=== PATIENT | male | born 1970 | race Hispanic/Latino ===

== ENCOUNTER 2018-11-04 13:34 | Observation (INO) | payer SELFPAY ==
[2018-11-04 14:01] LABS: #Basophils 0.1 thou/uL (0.0-0.2); #Eosinphils 0.1 thou/uL (0.0-0.7); #Lymphocytes 1.7 thou/uL (1.20-3.40); %Basophils 0.9 % (0.0-1.0); %Eosinophils 1.1 % (0.0-10.0); %Lymphocytes 18.8 % (21.0-51.0); %Neutrophils 68.3 % (42.0-75.0); Hemoglobin 15.9 g/dL (14.0-18.0); Mean Corpuscular HGB CONC 33.8 g/dL (32.0-36.0); Mean Corpuscular Hemoglobin 31.2 pg (27.0-31.0); Mean Corpuscular Volume 92.1 fL (78.0-98.0); Mean Platelet Volume 6.7 fL (7.4-10.4); Platelet Count 206 thou/uL (130-400); RBC Distribution Width 13.1 % (11.5-14.5); Red Blood Cell (RBC) Count 5.09 mill/uL (4.70-6.10); White Blood Cell (WBC) Count 8.7 thou/uL (4.8-10.8)
[2018-11-04 14:22] LABS: ALT (SGPT) 81 U/L (8-55); AST (SGOT) 71 U/L (5-34); Albumin 4.5 g/dL (3.5-5.0); Alkaline Phosphatase 93 U/L (40-150); Anion Gap 13 mmol/L (10-20); BUN (Urea Nitrogen) 4 mg/dL (8.9-20.6); Bilirubin, Total 1.2 mg/dL (0.2-1.2); Calc. Creatinine Clearance 0 mL/min (70-130); Calcium 9.2 mg/dL (7.8-10.44); Carbon Dioxide 24 mmol/L (22-29); Chloride 91 mmol/L (98-107); Estimated GFR-MDRD Greater than 90; Globulin 3.1 g/dL (2.4-3.5); Glucose 109 mg/dL (70-105); Potassium 3.8 mmol/L (3.5-5.1); Protein, Total 7.6 g/dL (6.0-8.3); Sodium 124 mmol/L (136-145)
[2018-11-04 16:08] LABS: Bilirubin Negative (Negative); Blood, Urine Negative (Negative); Clarity CLEAR (Clear); Glucose, Urine (Dipstick) Negative (Negative); Leukocyte Negative (Negative); Nitrite Negative (Negative); Protein, Urine (Dipstick) Negative (Neg-Trace); Urobilinogen 0.2 mg/dL (0.2-1.0)
[2018-11-04 16:10] LABS: Specific Gravity, Urine 1.002 (1.002-1.036)
[2018-11-04] MEDS ORDERED: Acetaminophen 325 MG TAB PO PRN (16:59)
[2018-11-04] MEDS ORDERED: Senokot S 8.6-50 MG TAB PO PRN (16:59)
[2018-11-04] MEDS ORDERED: Sodium Chloride 0.9% 1,000 ML IV SCH (17:00)
[2018-11-04] MEDS ORDERED: Dextrose 5% in Water 1,000 ML IV PRN (17:06)
[2018-11-04] MEDS ORDERED: Dextrose 50% Abboject 50 ML SYRINGE SLOW IVP PRN (17:06)
[2018-11-04] MEDS ORDERED: HumaLOG 300 UNITS/3 ML VIAL SC PRN (17:06)
[2018-11-04] MEDS ORDERED: Lorazepam 1 MG TAB PO PRN (17:07)
[2018-11-04 17:39] VITALS: BMI 30.2
[2018-11-04] MEDS ORDERED: Ondansetron PF 4 MG/2 ML Vial IVP PRN (17:55)
[2018-11-04] MEDS ORDERED: Ondansetron ODT 4 MG TAB SL PRN (17:55)
[2018-11-04] MEDS ORDERED: Atorvastatin Calcium 20 MG TAB PO SCH (21:00)
[2018-11-04] MEDS: Famotidine 20 MG TAB PO SCH (21:01)
[2018-11-04 22:39] LABS: Anion Gap 12 mmol/L (10-20); BUN (Urea Nitrogen) 5 mg/dL (8.9-20.6); Calc. Creatinine Clearance 185 mL/min (70-130); Calcium 9.4 mg/dL (7.8-10.44); Carbon Dioxide 24 mmol/L (22-29); Chloride 96 mmol/L (98-107); Estimated GFR-MDRD Greater than 90; Glucose 120 mg/dL (70-105); Potassium 3.9 mmol/L (3.5-5.1); Sodium 128 mmol/L (136-145)
--- NOTE | 2018-11-05 03:31 | HP ---
PRIMARY CARE PROVIDER: Dr. Garcia. CHIEF COMPLAINT: Low sodium. HISTORY OF PRESENT ILLNESS: Mr. Mcduffie is a 47-year-old male who reported to the emergency room today after being told that his sodium was low. The patient reports that he went to his PCP, they [place] [facility] and then called him today to tell him that his sodium was low and asked him to come to the emergency room for further management. The patient reports last day he started feeling weak, had an episode of diarrhea, was seen for blood work yesterday and notified that his sodium was 125 and then referred here. He denies any current chest pain or shortness of breath. He does report some weakness and fatigue. During his evaluation in the ER, the patient was noted to have sodium of 124, potassium 3.8, chloride 91, gap is 13, creatinine is 0.67, glucose is 109. Pertinent to his medical history is daily alcohol intake. Reports that he drinks 5 to 6 beers per day and is also on HCTZ for blood pressure. The patient will be admitted to the observation unit for further management. PAST MEDICAL HISTORY: Diabetes type 2, history of hyperlipidemia, high cholesterol, hypertension. PAST SURGICAL HISTORY: Hernia repair. PSYCHIATRIC HISTORY: None. SOCIAL HISTORY: The patient drinks every day more than 10 drinks per day. Denies any drug use. Denies any smoking history. REVIEW OF SYSTEMS: The patient does report some weakness, some fatigue, has had some nausea in the past several days, has an episode of diarrhea. Denied any current chest pain, shortness of breath, abdominal pain. All other systems reviewed and negative unless mentioned in the HPI. PHYSICAL EXAMINATION: VITAL SIGNS: Temperature is 98.3, pulse is 86, respirations 12, pO2 sats 96% on room air, blood pressure 133/78. CONSTITUTIONAL: The patient is nontoxic appearing. He is alert and oriented to person, place and time. HEENT: Head is atraumatic and normocephalic. Eyes; eyelids are normal to inspection. Extraocular muscles are intact. ENT: Mouth exam is normal. Mucous membranes are moist. NECK: Normal range of motion. Trachea is midline. RESPIRATORY: Chest movement is symmetrical. Breath sounds are clear. CARDIOVASCULAR: The patient has a regular heart rate and rhythm. Does have a murmur 3/6. ABDOMEN: Nontender. Bowel sounds are heard. BACK: Normal range of motion. No tenderness. EXTREMITIES: Upper extremity, normal inspection, normal strength, normal motor strength. Sensation intact. Radial pulses are normal. Lower extremity, normal range of motion. Motor strength is normal. Sensation intact. Pedal pulses normal. No edema is noted. NEURO: The patient is alert and oriented to person, place, and time. Speech is normal. SKIN: Warm and dry. Normal in color. IMAGING: EKG in the emergency room shows normal sinus rhythm, beats per minute 70. ASSESSMENT AND PLAN: 1. Hyponatremia, most likely related to beer potomania and also use of HCTZ for blood pressure. HCTZ has been stopped. IV hydration was given in the ER. We will order normal saline 125 mL per hour x1 L. We will p.o. fluid restrict. We will recheck sodium at 2200 hours to ensure that we are gently increasing sodium. 2. Diabetes. Before meals and bedtime glucose Accu-Cheks will be ordered. Sliding scale, initially we will start metformin prior to discharge. 3. Dyslipidemia. We will restart home medications. 4. Gastrointestinal prophylaxis. The patient takes Protonix. We will continue this. Deep venous thrombosis prophylaxis will be started. Case discussed with Dr. Galeana who agrees with plan. Hospital course will be dependent on clinical findings. Job ID: [id number]
[2018-11-05 05:43] LABS: Band 2 % (5-11); Eosinophils 1 % (0-10); Hemoglobin 15.5 g/dL (14.0-18.0); Lymphocytes 13 % (21-51); MDiff Complete? YES; Mean Corpuscular HGB CONC 32.9 g/dL (32.0-36.0); Mean Corpuscular Hemoglobin 30.9 pg (27.0-31.0); Mean Corpuscular Volume 93.9 fL (78.0-98.0); Mean Platelet Volume 7.1 fL (7.4-10.4); Monocytes 13 % (0-10); Neutrophil 71 % (42-75); Platelet Count 201 thou/uL (130-400); Platelet Morphology Comment Appears Adequate; RBC Distribution Width 13.2 % (11.5-14.5); Red Blood Cell (RBC) Count 5.02 mill/uL (4.70-6.10); White Blood Cell (WBC) Count 6.9 thou/uL (4.8-10.8)
[2018-11-05 05:57] LABS: Anion Gap 15 mmol/L (10-20); BUN (Urea Nitrogen) 5 mg/dL (8.9-20.6); Calc. Creatinine Clearance 179 mL/min (70-130); Calcium 9.5 mg/dL (7.8-10.44); Carbon Dioxide 25 mmol/L (22-29); Chloride 95 mmol/L (98-107); Estimated GFR-MDRD Greater than 90; Glucose 76 mg/dL (70-105); Potassium 4.1 mmol/L (3.5-5.1); Sodium 131 mmol/L (136-145)
[2018-11-05] MEDS: Famotidine 20 MG TAB PO SCH (08:21)
[2018-11-05] MEDS ORDERED: Non-Formulary Item 1 EACH (Lisinopril [Lisinopril] 40 MG) PO SCH (09:00)
[2018-11-05] MEDS ORDERED: Multivit, Therapeutic 1 TAB PO SCH (09:00)
[2018-11-05] MEDS ORDERED: Lisinopril 20 MG TAB PO SCH (09:00)
[2018-11-05] MEDS ORDERED: [UNRECOGNIZED DRUG - REMARK] PO SCH (09:00)
[2018-11-05 11:53] VITALS: BP 140/92; TEMP 97.9
--- NOTE | 2018-11-05 19:14 | DIS ---
DATE OF ADMISSION: 11/04/2018 DATE OF DISCHARGE: 11/05/2018 REASON FOR ADMISSION: Hyponatremia. FINAL DIAGNOSES: 1. Hyponatremia secondary to likely combination of beer potomania and hydrochlorothiazide use, much improved since admission, was 124, and now 131. 2. Alcohol abuse, with a 6 to 10 beer habit per day. 3. Type 2 diabetes mellitus. 4. Hyperlipidemia. 5. Hypertension. 6. Moderate aortic stenosis along with mildly elevated liver enzymes secondary to alcohol abuse. BRIEF HOSPITAL COURSE: The patient is a pleasant 47-year-old male with past medical history significant for diabetes, hypertension, hyperlipidemia, and history of alcohol abuse, who presented to the hospital at the behest of his primary care physician, Dr. Garcia, after routine blood work in the office revealed a sodium level of 125. He was told to come to the ER for further workup and treatment. The patient was admitted for his hyponatremia. Upon interview, the patient states that he did have a prior 18 [id number] alcohol usage, and now drinks maybe 6 to 10. The patient did remain completely asymptomatic from his hyponatremia. He denied any chest pain, shortness of breath, muscle weakness, or fatigue. He denied any abdominal symptoms. The patient was taken off of his hydrochlorothiazide, given one bag of normal saline, and his sodium did improve to 131 throughout his stay. The patient continues to deny any complaints. Overnight, he did feel mildly tremulous and this was relieved by Ativan. He only had one dose, and feels much improved today. He has no tremors or signs of DT. He is alert and oriented and has no complaints. He does also state that he has had a murmur that was diagnosed when he was 16-year-old. The patient did have an echocardiogram performed, which revealed moderate aortic stenosis and normal left ventricular systolic function. CONDITION AT DISCHARGE: Stable. DISCHARGE DISPOSITION: Home. DISCHARGE INSTRUCTIONS: The patient has been given counseling on alcohol cessation. He is to continue aggressive risk factor modification including control of his diabetes, hypertension, and hyperlipidemia. He also was given instruction to follow up with his PCP in the next week. He will also need to follow up with Cardiology given his diagnosed aortic stenosis. It is only moderate at this time, but may end up progressing. DISCHARGE MEDICATIONS: 1. Iron and folic acid supplement one cap daily. 2. Lisinopril 40 mg daily. 3. Metformin 850 mg tablet daily. 4. Pantoprazole 40 mg tablet daily. 5. Simvastatin 40 mg tablet daily. 6. Xanax 0.25 mg tablet one tablet p.o. q.8 hours p.r.n. for anxiety and agitation, dispense 5 with no refills. The care of this patient has been discussed with Dr. Galeana, who agrees with discharge as above. Job ID: [id number]
== END 2018-11-05 14:30 | disposition home or self-care (01) ==
LOC: ERS 13:34 → 2SW 14:53
PROVIDERS: ADMIT Internal Medicine; ATTEND Internal Medicine
DX: E87.1 Hypo-osmolality and hyponatremia (principal); F10.10 Alcohol abuse, uncomplicated; R79.89 Other specified abnormal findings of blood chemistry; E11.9 Type 2 diabetes mellitus without complications; E78.5 Hyperlipidemia, unspecified; E78.00 Pure hypercholesterolemia, unspecified; I10 Essential (primary) hypertension; I35.0 Nonrheumatic aortic (valve) stenosis; Z79.84 Long term (current) use of oral hypoglycemic drugs; Z79.899 Other long term (current) drug therapy
CPT/HCPCS: 36415; 36416; 80048; 80053; 81003; 85007; 85025; 85027; 90471; 90732; 93005; 93306; 96360; G0009; G0378

== ENCOUNTER 2020-12-23 10:46 | Outpatient (CLI) | payer OTHER ==
[2020-12-23 13:15] LABS: Anion Gap 16 mmol/L (10-20); BUN (Urea Nitrogen) 8 mg/dL (8.4-25.7); Calc. Creatinine Clearance 0 mL/min (70-130); Calcium 9.1 mg/dL (7.8-10.44); Carbon Dioxide 23 mmol/L (22-29); Chloride 94 mmol/L (98-107); Glucose 89 mg/dL (70-105); Potassium 4.7 mmol/L (3.5-5.1); Sodium 128 mmol/L (136-145)
[2020-12-23 13:16] LABS: Hemoglobin 15.5 g/dL (13.5-17.5); Mean Corpuscular HGB CONC 35.1 g/dL (32.0-36.0); Mean Corpuscular Hemoglobin 32.2 pg (27.0-33.0); Mean Corpuscular Volume 91.7 fl (81.2-95.1); Mean Platelet Volume 9.2 fl (7.4-10.4); Platelet Count 172 10x3/uL (150-450); RBC Distribution Width 13.6 % (11.5-14.5); Red Blood Cell (RBC) Count 4.81 10x6/uL (4.32-5.72); White Blood Cell (WBC) Count 8.2 10x3/uL (3.5-10.5)
[2020-12-23 13:45] LABS: MDiff Complete? YES
[2020-12-23 13:51] LABS: Eosinophils 1 % (0-10); Lymphocytes 18 % (21-51); Monocytes 19 % (0-10); Neutrophil 57 % (42-75); Reactive Lymphocytes 5 % (0-10)
[2020-12-23 13:53] LABS: Platelet Morphology Comment Appears Adequate; RBC Morphology Normal
== END 2020-12-23 10:47 | disposition home or self-care (01) ==
LOC: LABBT 10:46
PROVIDERS: ATTEND Specialist
DX: Z01.818 Encounter for other preprocedural examination (principal); E11.59 Type 2 diabetes mellitus with other circulatory complications; E78.00 Pure hypercholesterolemia, unspecified; K43.9 Ventral hernia without obstruction or gangrene; I15.2 Hypertension secondary to endocrine disorders
CPT/HCPCS: 80048; 85025; 93005; 93010